=== PATIENT | male | born 1990 | race Caucasian/White ===

== ENCOUNTER 2021-09-09 08:38 | Day surgery (SDC) | payer BC ==
[~2021-09-09] VITALS: Ht 172.7 cm; Wt 88.5 kg
[~2021-09-09 08:38] MED LIST: CLINDAMYCIN PHOS 600 MG/ D5W 50 ML PREMIX IV ONE
[2021-09-09] MEDS ORDERED: BUPIVACAINE LIPOSOME/PF 266 MG/20 ML VIAL INFIL ONE (12:56)
[2021-09-09] MEDS ORDERED: KETOROLAC TROMETHAMINE 30 MG VIAL IVP PRN (13:45)
[2021-09-09] MEDS ORDERED: LR 1,000 ML IV SCH (13:45)
[2021-09-09] MEDS ORDERED: ONDANSETRON HCL 4 MG/2 ML VIAL IVP PRN (13:45)
[2021-09-09] MEDS ORDERED: HYDROmorphone 1 MG/ML INJ. CARTRIDGE IVP PRN ×2 (13:45)
[2021-09-09] MEDS ORDERED: HYDROmorphone 2 MG/ML VIAL IVP PRN (13:45)
[2021-09-09] MEDS ORDERED: SEVOFLURANE 15 MIN GAS INH ONE (13:50)
[2021-09-09] MEDS ORDERED: SUCCINYLCHOLINE CHLORIDE 20 MG/ML(QUELICIN) IVP ONE (13:50)
[2021-09-09] MEDS ORDERED: fentaNYL CITRATE/PF 100 MCG/2 ML AMP IVP ONE (13:50)
[2021-09-09] MEDS ORDERED: DEXAMETHASONE SOD PHOSPHATE 4 MG/ML VIAL IVP ONE (13:50)
[2021-09-09] MEDS ORDERED: WATER FOR IRRIGATION,STERILE 1,000 ML IRRIG.SOLN IR ONE (13:50)
[2021-09-09] MEDS ORDERED: KETOROLAC TROMETHAMINE 30 MG VIAL IVP ONE (13:50)
[2021-09-09] MEDS ORDERED: PROPOFOL 200MG/ 20ML VIAL (DIPRIVAN) IV ONE (13:50)
[2021-09-09] MEDS ORDERED: ONDANSETRON HCL 4 MG/2 ML VIAL IVP ONE (13:50)
[2021-09-09] MEDS ORDERED: ROCURONIUM BROMIDE 10 MG/ML (ZEMURON) IV ONE (13:50)
[2021-09-09] MEDS ORDERED: MIDAZOLAM HCL 5 MG/5 ML VIAL IVP ONE (13:50)
[2021-09-09] MEDS ORDERED: METOCLOPRAMIDE HCL 10 MG/2 ML VIAL IVP ONE (13:50)
[2021-09-09] MEDS ORDERED: PHENYLEPHRINE HCL 10 MG/ML VIAL (NEOSYNEPHRINE) IV ONE (13:50)
[2021-09-09] MEDS ORDERED: LR 1,000 ML IV.SOLN IV ONE (13:50)
[2021-09-09] MEDS ORDERED: BUPIVACAINE /PF 0.5% 30 ML VIAL EP ONE (13:50)
[2021-09-09] MEDS ORDERED: GLYCOPYRROLATE 0.2 MG/ML VIAL IJ ONE (13:50)
[2021-09-09 15:37] VITALS: BP_SYST 128
== END 2021-09-09 16:10 | disposition home or self-care (01) ==
LOC: SDS 08:38 → SMU 08:39 → SDS 16:10
PROVIDERS: ATTEND Surgery
DX: L05.91 Pilonidal cyst without abscess (principal); E29.1 Testicular hypofunction; Z88.0 Allergy status to penicillin
CPT/HCPCS: 11770; 88304; C9290; J3490; J0330; J1100; J1885; J2250; J2370; J2405; J2704; J2765; J3010; J7120